=== PATIENT | female | born 1980 | race Two or more races ===

== ENCOUNTER → 2019-01-18 | Outpatient (REF) | payer OTHER ==
[2019-01-18 22:09] LABS: CHLAMYDIA DNA AMPLIFICATION NEGATIVE (NEGATIVE); GC DNA AMPLIFICATION NEGATIVE (NEGATIVE)
== END ==
LOC: M SFHCLERA 14:07
PROVIDERS: ATTEND Nurse Practitioner Family
DX: R10.9 Unspecified abdominal pain (principal)

== ENCOUNTER → 2019-01-18 | Outpatient (CLI) | payer OTHER ==
--- NOTE | 2019-01-19 06:59 | REP ---
ABDOMINAL SERIES: Supine and erect views of the abdomen demonstrate no free and no evidence of bowel obstruction. IUD is seen in the pelvis. I see no abnormal calcifications. The visualized osseous structures are unremarkable. An accompanying PA view of the chest demonstrates no acute infiltrate. Heart is normal in size and the mediastinal silhouette is unremarkable. IMPRESSION: Essentially unremarkable abdominal series as discussed above. Electronically Signed by Ilia Jacobsen MD 01/19/2019 10:20 A
== END ==
LOC: M LRY 14:41
PROVIDERS: ATTEND Nurse Practitioner Family
DX: R10.9 Unspecified abdominal pain (principal)

== ENCOUNTER → 2019-08-11 | Outpatient (CLI) | payer OTHER ==
--- NOTE | 2019-08-11 17:46 | REP ---
Six views lumbar spine: 08/11/2019: Indication: Low back pain. Comparison: None. Findings: There is no fracture, subluxation or dislocation. No osseous destructive lesions are present. Incidental note is made of an IUD. No significant soft tissue abnormalities are detected. Impression: No acute fracture or additional significant abnormalities of the lumbar spine. Electronically Signed by Shashi Nicole DO 08/12/2019 08:06 A
== END ==
LOC: M LRY 14:25
PROVIDERS: ATTEND Physician Assistant
DX: M54.5 Low back pain (principal)

== ENCOUNTER → 2021-10-06 | Outpatient (REF) | LOC: M EMP 07:37 | PROVIDERS: ATTEND Family Medicine | DX: Z11.52 Encounter for screening for COVID-19 (principal) ==

== ENCOUNTER → 2021-10-07 | Outpatient (REF) ==
[2021-10-07 15:29] LABS: RSV AMPLIFICATION NEGATIVE (NEGATIVE)
== END ==
LOC: M LABSMTC 11:58
PROVIDERS: ATTEND Family Medicine
DX: Z11.52 Encounter for screening for COVID-19 (principal); Z20.822 Contact with and (suspected) exposure to COVID-19

== ENCOUNTER → 2021-10-25 | Outpatient (REF) ==
[2021-10-25 15:55] LABS: RSV AMPLIFICATION NEGATIVE (NEGATIVE)
== END ==
LOC: M EMP 12:47
PROVIDERS: ATTEND Family Medicine
DX: Z11.52 Encounter for screening for COVID-19 (principal)

== ENCOUNTER → 2022-08-16 | Outpatient (CLI) | payer BC, OTHER | LOC: M WHC 07:05 | PROVIDERS: ATTEND Physician Assistant | DX: E06.3 Autoimmune thyroiditis (principal) ==

== ENCOUNTER → 2022-10-15 | Outpatient (REF) ==
[2022-10-15 15:03] LABS: INFLUENZA A AMPLIFICATION NEGATIVE (NEGATIVE); INFLUENZA B AMPLIFICATION NEGATIVE (NEGATIVE)
== END ==
LOC: M LABSMTC 10:50
PROVIDERS: ATTEND Family Medicine
DX: Z20.818 Contact with and (suspected) exposure to other bacterial communicable diseases (principal)

== ENCOUNTER → 2023-08-09 | Outpatient (CLI) | payer BC, OTHER | LOC: M WHC 09:24 | PROVIDERS: ATTEND Physician Assistant | DX: E06.3 Autoimmune thyroiditis (principal) ==

== ENCOUNTER → 2023-11-01 | Outpatient (REF) | LOC: M EMP 11:05 | PROVIDERS: ATTEND Family Medicine | DX: Z11.52 Encounter for screening for COVID-19 (principal) ==

== ENCOUNTER → 2023-12-24 | Outpatient (CLI) | payer BC | LOC: M WHC 15:03 | PROVIDERS: ATTEND Physician Assistant | DX: Z12.31 Encounter for screening mammogram for malignant neoplasm of breast (principal) ==

== ENCOUNTER → 2024-01-31 | Outpatient (CLI) | payer BC | LOC: M WUC 08:04 | PROVIDERS: ATTEND Physician Assistant | DX: R07.9 Chest pain, unspecified (principal) ==

== ENCOUNTER → 2024-03-06 | Outpatient (REF) | LOC: M EMP 08:10 | PROVIDERS: ATTEND Family Medicine | DX: Z20.822 Contact with and (suspected) exposure to COVID-19 (principal) ==

== ENCOUNTER → 2024-08-08 | Outpatient (CLI) | payer BC | LOC: M WHC 09:01 | PROVIDERS: ATTEND Physician Assistant | DX: E04.2 Nontoxic multinodular goiter (principal) ==

== ENCOUNTER → 2024-10-16 | Outpatient (REF) | LOC: M EMP 09:22 | PROVIDERS: ATTEND Family Medicine | DX: Z00.00 Encounter for general adult medical examination without abnormal findings (principal) ==

== ENCOUNTER → 2024-12-25 | Outpatient (CLI) | payer BC | LOC: M WHC 13:28 | PROVIDERS: ATTEND Physician Assistant | DX: Z12.31 Encounter for screening mammogram for malignant neoplasm of breast (principal) ==

== ENCOUNTER → 2024-12-31 | Outpatient (REF) | payer BC | LOC: M LAB REF 17:46 | PROVIDERS: ATTEND Internal Medicine Endocrinology, Diabetes & Metabolism | DX: E04.1 Nontoxic single thyroid nodule (principal) ==

== ENCOUNTER → 2025-02-03 | Outpatient (CLI) | payer BC ==
[2025-02-03 12:53] LABS: FREE T4 1.4 NG/DL (0.89-1.76)
[2025-02-03 12:54] LABS: THYROID STIMULATING HORMONE 1.248 uIU/ML (0.55-4.78)
== END ==
LOC: M WUC 09:04
PROVIDERS: ATTEND Nurse Practitioner Family
DX: E06.3 Autoimmune thyroiditis (principal)

== ENCOUNTER → 2025-07-24 | Outpatient (CLI) | payer BC ==
[2025-07-24 15:21] LABS: FREE T4 1.58 NG/DL (0.89-1.76)
== END ==
LOC: M LAB 13:15
PROVIDERS: ATTEND Nurse Practitioner Family
DX: E06.3 Autoimmune thyroiditis (principal)

== ENCOUNTER → 2025-09-29 | Outpatient (CLI) | payer BC ==
[2025-09-29 10:56] LABS: FREE T4 1.49 NG/DL (0.89-1.76)
== END ==
LOC: M LAB 09:14
PROVIDERS: ATTEND Nurse Practitioner Family
DX: E06.3 Autoimmune thyroiditis (principal)